=== PATIENT | male | born 1980 | race Caucasian/White ===

== ENCOUNTER 2020-08-30 12:24 | Emergency (ER) | payer OTHER ==
[~2020-08-30] VITALS: Ht 198.1 cm; Wt 86.2 kg
[2020-08-30 12:35] VITALS: BP 124/65
--- NOTE | 2020-08-30 13:30 | NUR ---
PT RELEASED UNDER THE CARE OF JULIETTED. PT IS MEDICALLY CLEARED FOR INCARCERATION.
== END 2020-08-30 13:42 | disposition home or self-care (01) ==
LOC: ER 12:51
DX: S61.412A Laceration without foreign body of left hand, initial encounter (principal); W54.0XXA Bitten by dog, initial encounter; Y93.89 Activity, other specified; Y92.89 Other specified places as the place of occurrence of the external cause; Y99.8 Other external cause status
CPT/HCPCS: 73060; 99283; A6403